=== PATIENT | male | born 1950 | race Caucasian/White ===

== ENCOUNTER 2017-02-05 09:59 | Observation (INO) | payer OTHER ==
[2017-02-05] VITALS (11 sets, daily range): BP systolic 121–163; BP diastolic 71–90; PULSE 57–98; RESP 17–20; TEMP 97.9–98.2; O2SAT 92–98
[~2017-02-05] VITALS: Ht 180.3 cm; Wt 87.0 kg
[~2017-02-05 09:59] MED LIST: GARC500T PO; OMEP20CA5 PO; PROS5TAB2 PO; SAW450CA2 PO; SYNT150T PO
--- NOTE | 2017-02-05 12:02 | PD ---
HPI Chief Complaint: Respiratory Symptoms Time Seen by Provider: 12:02 Travel History International Travel<30 days: No Contact w/Intl Traveler<30days: No Traveled to known affect area: No History of Present Illness HPI 66-year-old male with history of PE presents to the ED for evaluation of 4-5 week history of gradual onset shortness of breath and dyspnea on exertion. Patient also complains of cramps in bilateral lower legs. He endorses sinus congestion, clear rhinorrhea, chronic cough that is occasionally productive of yellowish sputum. He states that just getting dressed or going up the stairs in his house makes him feel exhausted. He denies fever, chills, chest pain , anorexia, abdominal pain, nausea, vomiting, dysuria, swelling of the extremities. Previous DVT/PE was in 2015. Patient does not currently take blood thinners. Stress test approximately one year ago at the [facility]. He was seen at the [facility] today and referred here for further evaluation. PFSH Past Medical History Kidney Stones: Yes Reproductive: Yes (hx of PE) Thyroid Disease: Yes Past Surgical History Genitourinary Surgery: Yes (LITHOTRIPSY) Other Surgery: Yes (prostate x2) Social History Alcohol Use: Yes (OCC BEER) Tobacco Use: No (smoked 1 ppd for 30 years, quit 3-4 years ago) Substance Use: No Allergies-Medications (Allergen,Severity, Reaction): Coded Allergies: No Known Allergies (Unverified , 02/05/17) Reported Meds & Prescriptions Reported Meds & Active Scripts Active Review of Systems Except as stated in HPI: all other systems reviewed are Neg Physical Exam Narrative GENERAL: Well-nourished, well-developed pleasant white male in no acute distress. SKIN: Focused skin assessment warm/dry. HEAD: Normocephalic. EYES: No scleral icterus. No injection or drainage. NECK: Supple, trachea midline. No JVD or lymphadenopathy. CARDIOVASCULAR: Regular rate and rhythm without murmurs, gallops, or rubs. 2+ DP and radial pulses bilaterally. RESPIRATORY: Breath sounds clear and equal bilaterally. No accessory muscle use. Patient speaks in full sentences. GASTROINTESTINAL: Abdomen soft, non-tender, nondistended. Active bowel sounds. MUSCULOSKELETAL: No cyanosis, or edema. Negative Homans sign bilaterally. Patient is ambulatory and moves the extremities spontaneously. BACK: Nontender without obvious deformity. No CVA tenderness. Data Data Last Documented VS Vital Signs Date Time Temp Pulse Resp B/P Pulse Ox O2 Delivery O2 Flow Rate FiO2 02/05/17 13:30 98 18 143/84 98 Room Air 02/05/17 10:00 98.2 Orders Complete Blood Count With Diff (02/05/17 12:02) Comprehensive Metabolic Panel (02/05/17 12:02) B-Type Natriuretic Peptide (02/05/17 12:02) Act Partial Throm Time (Ptt) (02/05/17 12:02) Prothrombin Time / Inr (Pt) (02/05/17 12:02) Ckmb (Isoenzyme) Profile (02/05/17 12:02) Troponin I (02/05/17 12:02) Urinalysis - C+S If Indicated (02/05/17 12:02) Blood Culture (02/05/17 12:02) Iv Access Insert/Monitor (02/05/17 12:02) Electrocardiogram (02/05/17 12:02) Ecg Monitoring (02/05/17 12:02) Oximetry (02/05/17 12:02) Chest, Single Ap (02/05/17 12:02) Ct Pulmonary Angiogram (02/05/17 12:02) Sodium Chloride 0.9% Flush (Ns Flush) (02/05/17 12:15) CKMB (02/05/17 12:15) CKMB% (02/05/17 12:15) Iohexol 350 Inj (Omnipaque 350 Inj) (02/05/17 14:00) Admit Order (Ed Use Only) (02/05/17 14:32) Labs Laboratory Tests Test 02/05/17 02/05/17 12:15 12:20 White Blood Count 5.9 TH/MM3 Red Blood Count 4.95 MIL/MM3 Hemoglobin 15.0 GM/DL Hematocrit 45.1 % Mean Corpuscular Volume 91.2 FL Mean Corpuscular Hemoglobin 30.4 PG Mean Corpuscular Hemoglobin 33.3 % Concent Red Cell Distribution Width 13.2 % Platelet Count 180 TH/MM3 Mean Platelet Volume 8.2 FL Neutrophils (%) (Auto) 57.5 % Lymphocytes (%) (Auto) 29.5 % Monocytes (%) (Auto) 6.6 % Eosinophils (%) (Auto) 5.2 % Basophils (%) (Auto) 1.2 % Neutrophils # (Auto) 3.4 TH/MM3 Lymphocytes # (Auto) 1.7 TH/MM3 Monocytes # (Auto) 0.4 TH/MM3 Eosinophils # (Auto) 0.3 TH/MM3 Basophils # (Auto) 0.1 TH/MM3 CBC Comment DIFF FINAL Differential Comment Prothrombin Time 10.4 SEC Prothromb Time International 0.9 RATIO Ratio Activated Partial 24.3 SEC Thromboplast Time Sodium Level 142 MEQ/L Potassium Level 3.8 MEQ/L Chloride Level 105 MEQ/L Carbon Dioxide Level 31.1 MEQ/L Anion Gap 6 MEQ/L Blood Urea Nitrogen 12 MG/DL Creatinine 1.10 MG/DL Estimat Glomerular Filtration 67 ML/MIN Rate Random Glucose 99 MG/DL Calcium Level 8.9 MG/DL Total Bilirubin 0.8 MG/DL Aspartate Amino Transf 17 U/L (AST/SGOT) Alanine Aminotransferase 30 U/L (ALT/SGPT) Alkaline Phosphatase 55 U/L Total Creatine Kinase 181 U/L Creatine Kinase MB 0.9 NG/ML Troponin I LESS THAN 0.02 NG/ML B-Type Natriuretic Peptide 38 PG/ML Total Protein 7.3 GM/DL Albumin 3.8 GM/DL Urine Color YELLOW Urine Turbidity CLEAR Urine pH 6.0 Urine Specific [place] 1.010 Urine Protein NEG mg/dL Urine Glucose (UA) NEG mg/dL Urine Ketones NEG mg/dL Urine Occult Blood NEG Urine Nitrite NEG Urine Bilirubin NEG Urine Urobilinogen LESS THAN 2.0 MG/DL Urine Leukocyte Esterase NEG Urine RBC LESS THAN 1 /hpf Urine WBC 1 /hpf Microscopic Urinalysis Comment CULT NOT INDICATED MDM Medical Decision Making Medical Screen Exam Complete: Yes Emergency Medical Condition: Yes Interpretation(s) EKG rate 60, sinus rhythm. IA interval 168, QRS 94, QTC 405. Normal axis. Inverted Q's in lead 3. No acute ST changes. Reviewed by Dr. Ying. Differential Diagnosis PE versus pneumonia versus heart failure versus OH versus AAA versus other Narrative Course 66-year-old male with history of PE presents to the ED for evaluation of 4-5 week history of gradual onset shortness of breath and dyspnea on exertion. Patient also complains of cramps in bilateral lower legs. He endorses sinus congestion, clear rhinorrhea, chronic cough that is occasionally productive of yellowish sputum. He denies fever, chills, chest pain , anorexia, abdominal pain , nausea, vomiting, dysuria, swelling of the extremities. Previous DVT/PE was in 2015. Patient does not currently take blood thinners. Stress test approximately one year ago at the [facility]. vitals reviewed. Physical exam reveals a nontoxic-appearing white male in no acute distress. Chest is clear to auscultation bilaterally. Equal pulses in the extremities bilaterally. No lower extremity edema. Patient was placed on continuous monitoring, IV was established. CBC, coags, chemistry, UA all unremarkable. BNP 38. Cardiac enzymes negative 1. CXR no infiltrate, prominent aortic knob, CT recommended. CTA negative per radiology read. [facility] Will admit patient to the chest pain center for further evaluation of his dyspnea on exertion. Susanna Ken Feb 05, 2017 12:02
[2017-02-05] MEDS ORDERED: SODIUM CHLORIDE 0.9% FLUSH 10 ML FLUSH IVF PRN (12:15)
--- NOTE | 2017-02-05 12:48 | RADRPT ---
EXAM DATE/TIME: 02/05/2017 12:29 [facility] COMPARISON: No previous studies available for comparison. INDICATIONS : Shortness of breath. MEDICAL HISTORY : None. SURGICAL HISTORY : None. ENCOUNTER: Initial ACUITY: 1 day PAIN SCORE: 0/10 LOCATION: Bilateral chest FINDINGS: A single view of the chest demonstrates the lungs to be symmetrically aerated without evidence of mas s, infiltrate or effusion. Mild cardiomegaly. Prominent aortic knob. The cardiomediastinal contours are unremarkable. Osseous structures are intact. CONCLUSION: 1. Prominent aortic knob. Thoracic aortic aneurysm cannot be excluded. CT chest recommended. 2. No infiltrate. José Duenas MD on February 05, 2017 at 12:46 Board Certified Radiologist. This report was verified electronically.
[2017-02-05 12:56] LABS: AUTOMATED NEUTROPHIL # 3.4 TH/MM3 (1.8-7.7); BASOPHIL # 0.1 TH/MM3 (0-0.2); BASOPHIL % 1.2 % (0.0-2.0); EOSINOPHIL # 0.3 TH/MM3 (0-0.4); EOSINOPHIL % 5.2 % (0.0-4.0); HEMATOCRIT 45.1 % (39.0-51.0); HEMO FLAGS DIFF FINAL; LYMPH % 29.5 % (9.0-44.0); LYMPHOCYTE # 1.7 TH/MM3 (1.0-4.8); MEAN CELL VOLUME 91.2 FL (80.0-100.0); MEAN CORPUSCULAR HEMOGLOBIN 30.4 PG (27.0-34.0); MEAN CORPUSCULAR HGB CONC 33.3 % (32.0-36.0); MONO % 6.6 % (0.0-8.0); NEUT % 57.5 % (16.0-70.0); PLATELET COUNT 180 TH/MM3 (150-450); RED BLOOD COUNT 4.95 MIL/MM3 (4.50-5.90); RED CELL DISTRIBUTION WIDTH 13.2 % (11.6-17.2); WHITE BLOOD COUNT 5.9 TH/MM3 (4.0-11.0)
[2017-02-05 12:59] LABS: BLOOD, URINE NEG (NEG); GLUCOSE,URINE NEG (NEG); KETONE, URINE NEG (NEG); NITRITE,URINE NEG (NEG); URINE COLOR YELLOW (YELLW/STRAW)
[2017-02-05 13:01] LABS: COMMENT (UR) CULT NOT INDICATED; CULTURE IF INDICATED CULT NOT INDICATED
[2017-02-05 13:09] LABS: APTT (PATIENT) 24.3 SEC (24.3-30.1); INTERNATIONAL NORMALIZED RATIO 0.9 RATIO; PROTHROMBIN TIME - PATIENT 10.4 SEC (9.8-11.6)
[2017-02-05 13:14] LABS: ANION GAP 6 MEQ/L (5-15); AST (GOT) 17 U/L (15-37); BICARBONATE 31.1 MEQ/L (21.0-32.0); BLOOD UREA NITROGEN 12 MG/DL (7-18); CHLORIDE 105 MEQ/L (98-107); GLOMERULAR FILTRATION RATE 67 ML/MIN (>89); POTASSIUM 3.8 MEQ/L (3.5-5.1); SODIUM (NA) 142 MEQ/L (136-145)
[2017-02-05 13:19] LABS: ALKALINE PHOSPHATASE 55 U/L (45-117); ALT (GPT) 30 U/L (12-78); CREATINE KINASE 181 U/L (39-308); TOTAL BILIRUBIN ADULT 0.8 MG/DL (0.2-1.0)
[2017-02-05 13:31] LABS: CKMB 0.9 NG/ML (0.5-3.6)
[2017-02-05] MEDS ORDERED: TAMS0.4C4 PO (13:43)
[2017-02-05] MEDS ORDERED: ASPI1TAB69 PO (13:43)
[2017-02-05] MEDS ORDERED: SYNT25TA PO (13:43)
[2017-02-05] MEDS ORDERED: IOHEXOL 350 MG/ML 10 ML VIAL (for RAD DIAG) IV ONE (14:00)
--- NOTE | 2017-02-05 14:25 | RADRPT ---
EXAM DATE/TIME: 02/05/2017 13:38 [facility] COMPARISON: No previous studies available for comparison. INDICATIONS : Dyspnea for 1 week, prior history of pulmonary embolus IV CONTRAST: 50 cc Omnipaque 350 (iohexol) IV RADIATION DOSE: 23.20 CTDIvol (mGy) MEDICAL HISTORY : Renal calculi. SURGICAL HISTORY : prostate surgery ENCOUNTER: Initial ACUITY: 1 week PAIN SCALE: 0/10 LOCATION: chest TECHNIQUE: Volumetric scanning of the chest was performed using a pulmonary embolism protocol MIP images were re constructed. Using automated exposure control and adjustment of the mA and/or kV according to patien t size, radiation dose was kept as low as reasonably achievable to obtain optimal diagnostic quality images. FINDINGS: PULMONARY ARTERIES: No filling defects are seen in the pulmonary arteries through the segmental level. LUNGS: There is no consolidation or pneumothorax . No concerning pulmonary nodule is visualized. Minimal de pendent atelectatic changes. Azygos fissure in the right upper lobe. PLEURAE: There is no pleural thickening or pleural effusion. MEDIASTINUM: There is good visualization of the great vessels of the middle mediastinum. No evidence of mediastin al or hilar adenopathy/mass. MUSCULOSKELETAL: Within normal limits for patient age. MISCELLANEOUS: The visualized upper abdominal organs demonstrate no acute abnormality. CONCLUSION: 1. Minimal dependent atelectatic changes bilaterally. Azygos fissure in the right upper lobe. 2. Otherwise negative. No confluent infiltrate or pulmonary embolus to explain current clinical sympt oms. Jarred Tong MD on February 05, 2017 at 14:20 Board Certified Radiologist. This report was verified electronically.
--- NOTE | 2017-02-05 14:35 | PD ---
Data Data Last Documented VS Vital Signs Date Time Temp Pulse Resp B/P Pulse Ox O2 Delivery O2 Flow Rate FiO2 02/05/17 13:30 98 18 143/84 98 Room Air 02/05/17 10:00 98.2 Orders Complete Blood Count With Diff (02/05/17 12:02) Comprehensive Metabolic Panel (02/05/17 12:02) B-Type Natriuretic Peptide (02/05/17 12:02) Act Partial Throm Time (Ptt) (02/05/17 12:02) Prothrombin Time / Inr (Pt) (02/05/17 12:02) Ckmb (Isoenzyme) Profile (02/05/17 12:02) Troponin I (02/05/17 12:02) Urinalysis - C+S If Indicated (02/05/17 12:02) Blood Culture (02/05/17 12:02) Iv Access Insert/Monitor (02/05/17 12:02) Electrocardiogram (02/05/17 12:02) Ecg Monitoring (02/05/17 12:02) Oximetry (02/05/17 12:02) Chest, Single Ap (02/05/17 12:02) Ct Pulmonary Angiogram (02/05/17 12:02) Sodium Chloride 0.9% Flush (Ns Flush) (02/05/17 12:15) CKMB (02/05/17 12:15) CKMB% (02/05/17 12:15) Iohexol 350 Inj (Omnipaque 350 Inj) (02/05/17 14:00) Admit Order (Ed Use Only) (02/05/17 14:32) Labs Laboratory Tests Test 02/05/17 02/05/17 12:15 12:20 White Blood Count 5.9 TH/MM3 Red Blood Count 4.95 MIL/MM3 Hemoglobin 15.0 GM/DL Hematocrit 45.1 % Mean Corpuscular Volume 91.2 FL Mean Corpuscular Hemoglobin 30.4 PG Mean Corpuscular Hemoglobin 33.3 % Concent Red Cell Distribution Width 13.2 % Platelet Count 180 TH/MM3 Mean Platelet Volume 8.2 FL Neutrophils (%) (Auto) 57.5 % Lymphocytes (%) (Auto) 29.5 % Monocytes (%) (Auto) 6.6 % Eosinophils (%) (Auto) 5.2 % Basophils (%) (Auto) 1.2 % Neutrophils # (Auto) 3.4 TH/MM3 Lymphocytes # (Auto) 1.7 TH/MM3 Monocytes # (Auto) 0.4 TH/MM3 Eosinophils # (Auto) 0.3 TH/MM3 Basophils # (Auto) 0.1 TH/MM3 CBC Comment DIFF FINAL Differential Comment Prothrombin Time 10.4 SEC Prothromb Time International 0.9 RATIO Ratio Activated Partial 24.3 SEC Thromboplast Time Sodium Level 142 MEQ/L Potassium Level 3.8 MEQ/L Chloride Level 105 MEQ/L Carbon Dioxide Level 31.1 MEQ/L Anion Gap 6 MEQ/L Blood Urea Nitrogen 12 MG/DL Creatinine 1.10 MG/DL Estimat Glomerular Filtration 67 ML/MIN Rate Random Glucose 99 MG/DL Calcium Level 8.9 MG/DL Total Bilirubin 0.8 MG/DL Aspartate Amino Transf 17 U/L (AST/SGOT) Alanine Aminotransferase 30 U/L (ALT/SGPT) Alkaline Phosphatase 55 U/L Total Creatine Kinase 181 U/L Creatine Kinase MB 0.9 NG/ML Troponin I LESS THAN 0.02 NG/ML B-Type Natriuretic Peptide 38 PG/ML Total Protein 7.3 GM/DL Albumin 3.8 GM/DL Urine Color YELLOW Urine Turbidity CLEAR Urine pH 6.0 Urine Specific [place] 1.010 Urine Protein NEG mg/dL Urine Glucose (UA) NEG mg/dL Urine Ketones NEG mg/dL Urine Occult Blood NEG Urine Nitrite NEG Urine Bilirubin NEG Urine Urobilinogen LESS THAN 2.0 MG/DL Urine Leukocyte Esterase NEG Urine RBC LESS THAN 1 /hpf Urine WBC 1 /hpf Microscopic Urinalysis Comment CULT NOT INDICATED MDM Supervised Visit with NATHANIEL: Yes Narrative Course I, Dr. Cruz, have reviewed the advance practice practioner's documentation and am in agreement, met with the patient face to face, made the diagnosis, and the medical decision making was done by me. *My assessment and Findings: 66-year-old male with history of PE in 2013 no longer anticoagulated here with about 5 weeks of dyspnea on exertion. No cough , chest congestion. He has had some cramps in the legs but denies any swelling , pain. No chest pain. He denies any history of cardiac disease. Reportedly had a negative stress test at the [facility] in February 2016. Clear to auscultation bilaterally, regular rate and rhythm. Well-appearing male, physically fit with no partial edema in the extremities. Differential includes PE, ACS, new onset heart failure, less likely pneumonia, symptomatic anemia or arrhythmia. Twelve- lead EKGs with T-wave inversion in lead 3 only. Laboratory workup unremarkable and CT pulmonary injury gram-negative. [facility] 1 [facility], but will require admission for serial enzymes and likely repeat provocative testing. Elicia Cruz MD Feb 05, 2017 14:35
[2017-02-05] MEDS ORDERED: ONDANSETRON HCL 4 MG/2 ML VIAL IV PRN (16:00)
[2017-02-05] MEDS ORDERED: SODIUM CHLORIDE 0.9% FLUSH 5 ML FLUSH IVF PRN (16:00)
[2017-02-05] MEDS ORDERED: ALPRAZolam 0.25 MG TAB PO PRN (16:00)
[2017-02-05] MEDS ORDERED: cloNIDine HCL 0.1 MG TAB PO PRN (16:00)
[2017-02-05] MEDS ORDERED: RESP: ALBUTEROL 2.5 MG/IPRATROPIUM 0.5 MG NEB (PRN) INH (16:00)
[2017-02-05] MEDS ORDERED: ACETAMINOPHEN/HYDROcodone 325 MG/7.5 MG TAB PO PRN (16:00)
[2017-02-05] MEDS ORDERED: ACETAMINOPHEN 500 MG CPLT PO PRN (16:00)
--- NOTE | 2017-02-05 16:12 | HHI.HP ---
HPI Primary Care Physician [facility] Chief Complaint Dyspnea on exertion History of Present Illness This is a 66-year-old male that presents to ED via private vehicle at the suggestion of the [facility] to evaluate dyspnea on exertion. Patient states that for the last 4-5 weeks he has had dyspnea with exertion which he describes as light activity. No chest discomfort. No nausea or diaphoresis. He also states that he has had a greenish color productive cough for last 2 months. He states he was told of the MS not to worry about it and he did not need medications for this. He also states that he has been fatigued for the last couple months. Denies fevers or chills. Patient has history of the PE in 2014. Patient states he completed his course of warfarin. He does not have the same symptoms of when he had a PE, stating that he had a lot of calf tenderness when he had the PE. He is not had any of those symptoms recently. Denies history of CAD. States he had a chemical stress test February of last year that was nonischemic. Review of Systems General: Patient denies fevers, chills recent, and recent travel HEENT: Patient denies headache, sore throat, difficulty swallowing. Cardiovascular: Has the chest discomfort as mentioned above. Denies sensation of heart beating rapidly or irregularly. No syncope. Respiratory: He has dyspnea on exertion. Denies inspirational chest discomfort. Denies coughing wheezing or hemoptysis. GI: Patient denies nausea, vomiting, diarrhea, abdominal pain, bloody stools. Musculoskeletal: Patient denies joint pain or edema. Denies calf pain or edema. Neurovascular: Patient denies numbness, tingling, weakness in extremities. Denies headache. Endocrine: Denies polyuria and polydipsia. Hematologic: Denies easy bruising. Skin: Denies rash or itching. Past Family Social History Allergies: Coded Allergies: No Known Allergies (Unverified , 02/05/17) Past Medical History PE in 2013. Pericarditis age 25. Hyperlipidemia, states he takes the medication but cannot recall the name of the medicine. Also history of BPH. Had hyperthyroidism but had radioactive seed implantation and is now hypothyroid and takes Synthroid for that. Past history tobacco abuse but states he quit 3 or 4 years ago. He has had kidney stones. Denies history of CAD. Denies hypertension. Denies diabetes. Past Surgical History Lithotripsy for kidney stones. Prostate procedures. Reported Medications Reported Meds & Active Scripts Active Reported Aspirin 81 Mg Tabdr 81 Mg PO DAILY Synthroid (Levothyroxine Sodium) 25 Mcg Tab 25 Mcg PO DAILY Tamsulosin (Tamsulosin HCl) 0.4 Mg Cap 0.4 Mg PO HS Active Ordered Medications Current Medications Medications (Trade) Dose Ordered Sig/Hollis Route Start Time Stop Time Status Last Admin (NS Flush) 2 ml UNSCH PRN IVF 02/05/17 12:15 (NS Flush) 2 ml UNSCH PRN IVF 02/05/17 16:00 UNV (NS Flush) 2 ml BID IVF 02/05/17 21:00 UNV (Tylenol) 500 mg Q4H PRN PO 02/05/17 16:00 UNV (Bally 7.5-325 Mg) 1 tab Q4H PRN PO 02/05/17 16:00 UNV (Zofran Inj) 4 mg Q6H PRN IV 02/05/17 16:00 UNV Family History There is family history of CAD. Social History Patient with smoking cigarettes 34 years ago. Prior to that he smoked about 1 pack of cigarettes daily for 30 years. Has on average a couple beers twice a week. He denies illicit drugs. He has been for 11 years. He is retired. Physical Exam Vital Signs Vital Signs Date Time Temp Pulse Resp B/P Pulse Ox O2 Delivery O2 Flow Rate FiO2 02/05/17 13:30 98 18 143/84 98 Room Air 02/05/17 12:18 98 Room Air 02/05/17 11:52 20 Room Air 02/05/17 10:00 98.2 81 17 163/90 98 Physical Exam GENERAL: This is a well-nourished, well-developed patient, in no apparent distress. Patient speaks in clear complete sentences. Patient is pleasant. HEENT: Head is atraumatic and normocephalic. Neck is supple without lymphadenopathy and trachea is midline. No JVD or carotid bruits. CARDIOVASCULAR: Regular rate and rhythm without murmurs, gallops, or rubs. RESPIRATORY: Clear to auscultation. Breath sounds equal bilaterally. No wheezes , rales, or rhonchi. Chest wall is nontender. No use of accessory muscles. GASTROINTESTINAL: Abdomen is nontender, nondistended. Abdomen soft. No obvious pulsatile mass or bruit. No CVA tenderness. Strong femoral pulses bilaterally. Normal bowel sounds in all quadrants. MUSCULOSKELETAL: Patient is moving upper and lower extremities freely. No calf tenderness or edema, no Homans sign. Strong pulses in upper and lower extremities. NEUROLOGICAL: Patient is alert and oriented. Cranial nerves 2-12 are grossly intact. No focal deficits and speech is clear. SKIN: No rash and turgor is normal. Laboratory Laboratory Tests Test 02/05/17 02/05/17 12:15 12:20 White Blood Count 5.9 Red Blood Count 4.95 Hemoglobin 15.0 Hematocrit 45.1 Mean Corpuscular Volume 91.2 Mean Corpuscular Hemoglobin 30.4 Mean Corpuscular Hemoglobin 33.3 Concent Red Cell Distribution Width 13.2 Platelet Count 180 Mean Platelet Volume 8.2 Neutrophils (%) (Auto) 57.5 Lymphocytes (%) (Auto) 29.5 Monocytes (%) (Auto) 6.6 Eosinophils (%) (Auto) 5.2 Basophils (%) (Auto) 1.2 Neutrophils # (Auto) 3.4 Lymphocytes # (Auto) 1.7 Monocytes # (Auto) 0.4 Eosinophils # (Auto) 0.3 Basophils # (Auto) 0.1 CBC Comment DIFF FINAL Differential Comment Prothrombin Time 10.4 Prothromb Time International 0.9 Ratio Activated Partial 24.3 Thromboplast Time Sodium Level 142 Potassium Level 3.8 Chloride Level 105 Carbon Dioxide Level 31.1 Anion Gap 6 Blood Urea Nitrogen 12 Creatinine 1.10 Estimat Glomerular Filtration 67 Rate Random Glucose 99 Calcium Level 8.9 Total Bilirubin 0.8 Aspartate Amino Transf 17 (AST/SGOT) Alanine Aminotransferase 30 (ALT/SGPT) Alkaline Phosphatase 55 Total Creatine Kinase 181 Creatine Kinase MB 0.9 Troponin I LESS THAN 0.02 B-Type Natriuretic Peptide 38 Total Protein 7.3 Albumin 3.8 Urine Color YELLOW Urine Turbidity CLEAR Urine pH 6.0 Urine Specific [place] 1.010 Urine Protein NEG Urine Glucose (UA) NEG Urine Ketones NEG Urine Occult Blood NEG Urine Nitrite NEG Urine Bilirubin NEG Urine Urobilinogen LESS THAN 2.0 Urine Leukocyte Esterase NEG Urine RBC LESS THAN 1 Urine WBC 1 Microscopic Urinalysis Comment CULT NOT INDICATED Date/Time Procedure Status Source Growth 02/05/17 12:15 Aerobic Blood Culture Received Blood Line Pending 02/05/17 12:15 Anaerobic Blood Culture Received Blood Line Pending Result Diagram: 02/05/17 1215 02/05/17 1215 Imaging Last 24 hours Impressions Chest X-Ray 02/05/17 1202 Signed Impressions: Service Date/Time: Sunday, February 05, 2017 12:29 - CONCLUSION: 1. Prominent aortic knob. Thoracic aortic aneurysm cannot be excluded. CT chest recommended. 2. No infiltrate. José Duenas MD CT Angiography 02/05/17 1202 Signed Impressions: Service Date/Time: Sunday, February 05, 2017 13:38 - CONCLUSION: 1. Minimal dependent atelectatic changes bilaterally. Azygos fissure in the right upper lobe. 2. Otherwise negative. No confluent infiltrate or pulmonary embolus to explain current clinical symptoms. Jarred Tong MD Course Initial EKG is sinus rhythm without significant ST segment depressions or elevations. Assessment and Plan Assessment and Plan * Dyspnea on exertion: Patient will continue to have serial cardiac enzymes and EKGs for ruling out purposes. The ER physician rule out PE was CTA. I discussed the chest x-ray with Dr. Ying and states there was no worry for thoracic aneurysm. I also discussed this with radiologist Dr. Rodriguez and reviewed images and did not see dilatation but did see calcifications. Patient will spend the night in the chest pain center and will see Dr. Bah in the morning. Likely will have a Lexiscan and if that were to be nonischemic he would be discharged home with instructions to [facility]. * Hypothyroidism: We'll get a TSH. * Hyperlipidemia: Patient states he does take medication for this but cannot recall the name or dose. He should resume this at discharge. Patient is stable at this time. He is agreeable to this plan. Beto Moctezuma Feb 05, 2017 16:12
[2017-02-05] MEDS: PANTOPRAZOLE SOD 40 MG DELAYED RELEASE TAB PO SCH (17:29)
[2017-02-05 19:19] LABS: CREATINE KINASE 152 U/L (39-308)
[2017-02-05 19:32] LABS: CKMB 1.1 NG/ML (0.5-3.6)
[2017-02-05] MEDS: SODIUM CHLORIDE 0.9% FLUSH 5 ML FLUSH IVF SCH (19:39)
[2017-02-05] MEDS ORDERED: TAMSULOSIN HCL 0.4 MG CAP PO SCH (21:00)
[2017-02-06 02:37] VITALS: BP 114/64; PULSE 65; RESP 18; TEMP 98; O2SAT 97
[2017-02-06 04:25] VITALS: BP 114/64; PULSE 61; RESP 18; O2SAT 97
[2017-02-06] MEDS ORDERED: LEVOTHYROXINE SODIUM 25 MCG TAB PO SCH (06:00)
[2017-02-06 07:50] VITALS: O2SAT 96
[2017-02-06] MEDS: PANTOPRAZOLE SOD 40 MG DELAYED RELEASE TAB PO SCH (07:57)
[2017-02-06] MEDS: SODIUM CHLORIDE 0.9% FLUSH 5 ML FLUSH IVF SCH (07:58)
[2017-02-06] MEDS ORDERED: ASPIRIN 325 MG TAB PO SCH (09:00)
--- NOTE | 2017-02-06 09:53 | EKG ---
Date Performed: 02/05/2017 Time Performed: 12:07:19 PTAGE: 66 years EKG: Sinus rhythm NORMAL ECG INTERPRETATION BASED ON A DEFAULT AGE OF 40 YEARS NO PREVIOUS TRACING DOCTOR: Emily Bah Interpretating Date/Time 02/06/2017 09:52:50
--- NOTE | 2017-02-06 09:53 | EKG ---
Date Performed: 02/05/2017 Time Performed: 15:31:05 PTAGE: 66 years EKG: SINUS BRADYCARDIA WITH SINUS ARRHYTHMIA BORDERLINE ECG PREVIOUS TRACING : 02/05/2017 12.07 Since previous tracing, no significant change noted DOCTOR: Emily Bah Interpretating Date/Time 02/06/2017 09:53:13
--- NOTE | 2017-02-06 09:54 | EKG ---
Date Performed: 02/05/2017 Time Performed: 18:17:45 PTAGE: 66 years EKG: SINUS BRADYCARDIA WITH SINUS ARRHYTHMIA BORDERLINE ECG Since PREVIOUS TRACING , no significant change noted DOCTOR: Emily Bah Interpretating Date/Time 02/06/2017 09:53:57
[2017-02-06] MEDS ORDERED: REGADENOSON INJ 0.4 MG/5 ML SYR ONE (09:58)
--- NOTE | 2017-02-06 10:59 | RADRPT ---
EXAM DATE/TIME: 02/06/2017 08:57 [facility] COMPARISON: No previous studies available for comparison. INDICATIONS : Dyspnea upon exertion with leg cramping for 4-5 weeks. Angina. DOSE: 27.2 mCi Tc99m Myoview at stress. 8.8 mCi Tc99m Myoview at rest. 0.4 mg Lexiscan STRESS SYMPTOMS: Dyspnea. EJECTION FRACTION: 56% MEDICAL HISTORY : Ex-smoker. SURGICAL HISTORY : Prostatectomy. ENCOUNTER: Initial ACUITY: 1 month PAIN SCALE: 0/10 LOCATION: chest TECHNIQUE: The patient underwent pharmacologic stress with infusion of prescribed dose. Continuous ECG tracing was monitored during stress. Gated SPECT imaging was performed after stress and conventional SPECT i maging was performed at rest. The examination was performed on a SPECT/CT scanner, both attenuation and non-corrected datasets were reviewed. FINDINGS: DISTRIBUTION: The maximum perfused segment at stress is in the anterolateral wall. PERFUSION STUDY: The pattern of perfusion at stress is within normal limits. GATED STUDY: There is intact wall motion and thickening without hypokinetic or dyskinetic segments. CONCLUSION: 1. Unremarkable myocardial perfusion scan. RISK CATEGORY: Low (<1% Annual Mortality Rate) Apollo Bazzi MD on February 06, 2017 at 10:55 Board Certified Radiologist. This report was verified electronically.
--- NOTE | 2017-02-06 11:43 | HHI.DCPOC ---
Discharge Care Plan Diagnosis: (1) Dyspnea Goals to Promote Your Health * To prevent worsening of your condition and complications * To maintain your health at the optimal level Directions to Meet Your Goals Take your medications as prescribed Follow your dietary instruction Follow activity as directed Keep your appointments as scheduled Take your immunizations and boosters as scheduled If your symptoms worsen call your PCP, if no PCP go to Urgent Care Center or Emergency Room Smoking is Dangerous to Your Health. Avoid second hand smoke Call the 24-hour hour crisis hotline for domestic abuse at [facility] [place] Feb 06, 2017 11:43
[2017-02-06 12:17] VITALS: PULSE 53
--- NOTE | 2017-02-06 17:27 | TR ---
Date Performed: 02/06/2017 Time Performed: 09:37:54 DOCTOR: Emily Bah DRUG LIST: CLINICAL HISTORY: REASON FOR TEST: Angina REASON FOR ENDING: OBSERVATION: CONCLUSION: Lexiscan stress test was performed under standard four minute protocol. Radionuclid e was injected one minute prior to ending the test. No electrocardiographic abormalities were present to suggest ischemia. Nuclear imaging and interpretation are pending. COMMENTS:
== END 2017-02-06 12:48 | disposition home or self-care (01) ==
LOC: NEPE 09:59 → NEDA 14:34 → NEPFCDU 16:34
PROVIDERS: ADMIT Internal Medicine Cardiovascular Disease; ATTEND Internal Medicine Cardiovascular Disease
DX: R06.00 Dyspnea, unspecified (principal); R06.02 Shortness of breath; E03.9 Hypothyroidism, unspecified; E78.5 Hyperlipidemia, unspecified; R94.31 Abnormal electrocardiogram [ECG] [EKG]; N40.0 Benign prostatic hyperplasia without lower urinary tract symptoms; Z86.711 Personal history of pulmonary embolism; Z86.718 Personal history of other venous thrombosis and embolism; Z87.442 Personal history of urinary calculi; Z87.891 Personal history of nicotine dependence
CPT/HCPCS: 71010; 71275; 78452; 80053; 81001; 82550; 82552; 83880; 84443; 84484; 85025; 85610; 85730; 87040; 93005; 93017; 99285; A9502; G0378; J2785; Q9967